=== PATIENT | male | born 1980 ===

== ENCOUNTER 2020-08-01 08:34 | Outpatient (CLI) | payer OTHER ==
[~2020-08-01 08:34] MED LIST: LUNESTA3 MG PO; PAXIL10 MG/5 ML PO
== END 2020-08-01 08:51 ==
LOC: SONOGRAMA 08:34 → RX STUDY 13:15
DX: Z00.00 Encounter for general adult medical examination without abnormal findings (principal)

== ENCOUNTER 2021-01-28 08:00 | Outpatient (CLI) | payer OTHER | END 2021-01-28 08:30 | disposition home or self-care (01) | LOC: PPH VACUNA 08:00 | DX: Z23 Encounter for immunization (principal) ==

== ENCOUNTER 2021-02-20 08:00 | Outpatient (CLI) | payer OTHER | END 2021-02-20 08:30 | disposition home or self-care (01) | LOC: PPH VACUNA 08:00 | DX: Z23 Encounter for immunization (principal) ==

== ENCOUNTER 2021-03-04 13:08 | Outpatient (CLI) | payer OTHER | END 2021-03-04 13:57 | disposition home or self-care (01) | LOC: NST 13:08 | PROVIDERS: ATTEND Obstetrics & Gynecology Maternal & Fetal Medicine | DX: Z34.83 Encounter for supervision of other normal pregnancy, third trimester (principal) ==

== ENCOUNTER 2021-03-13 08:48 | Outpatient (CLI) | payer OTHER | END 2021-03-13 09:41 | disposition home or self-care (01) | LOC: NST 08:48 | PROVIDERS: ATTEND Obstetrics & Gynecology | DX: Z34.82 Encounter for supervision of other normal pregnancy, second trimester (principal) ==

== ENCOUNTER 2021-04-16 09:31 | Outpatient (CLI) | payer OTHER | END 2021-04-16 10:37 | disposition home or self-care (01) | LOC: NST 09:31 | PROVIDERS: ATTEND Obstetrics & Gynecology Maternal & Fetal Medicine | DX: Z34.83 Encounter for supervision of other normal pregnancy, third trimester (principal) ==

== ENCOUNTER 2021-05-01 09:25 | Outpatient (CLI) | payer OTHER | END 2021-05-01 10:43 | disposition home or self-care (01) | LOC: NST 09:25 | PROVIDERS: ATTEND Obstetrics & Gynecology | DX: Z34.83 Encounter for supervision of other normal pregnancy, third trimester (principal) ==

== ENCOUNTER 2021-05-20 09:38 | Outpatient (CLI) | payer OTHER | END 2021-05-20 11:51 | disposition home or self-care (01) | LOC: NST 09:38 | PROVIDERS: ATTEND Obstetrics & Gynecology | DX: Z34.83 Encounter for supervision of other normal pregnancy, third trimester (principal) ==

== ENCOUNTER 2021-06-02 08:57 | Outpatient (CLI) | payer OTHER | END 2021-06-02 09:35 | disposition home or self-care (01) | LOC: NST 08:57 | PROVIDERS: ATTEND Obstetrics & Gynecology Maternal & Fetal Medicine | DX: Z34.83 Encounter for supervision of other normal pregnancy, third trimester (principal) ==

== ENCOUNTER 2021-06-15 08:45 | Inpatient (IN) | payer OTHER ==
[~2021-06-15] VITALS: Ht 167.6 cm; Wt 2.3 kg
[2021-06-15] MEDS ORDERED: SYNTHROID75 MCG PO (10:48)
[2021-06-17] MEDS ORDERED: PRENATAL CAPLE1 EAC1 PO (11:30)
[2021-06-17] MEDS ORDERED: ADULT LOW DOSE81 M1 PO (11:31)
== END 2021-06-21 18:04 | disposition home or self-care (01) | DRG 788 ==
LOC: OB/GYN 06-17 08:45 → O/R 06-17 09:30 → OB/GYN 06-17 19:47
PROVIDERS: ADMIT Obstetrics & Gynecology; ATTEND Obstetrics & Gynecology
PROC: 4A1HXCZ Monitoring of Products of Conception, Cardiac Rate, External Approach (ICD-10-PCS; 2021-06-17)
PROC: 10D00Z1 Extraction of Products of Conception, Low, Open Approach (ICD-10-PCS; principal; 2021-06-17 13:30)
DX: O60.14X2 Preterm labor third trimester with preterm delivery third trimester, fetus 2 (principal); O64.8XX2 Obstructed labor due to other malposition and malpresentation, fetus 2; O30.033 Twin pregnancy, monochorionic/diamniotic, third trimester; Z3A.36 36 weeks gestation of pregnancy; Z37.2 Twins, both liveborn; Z20.822 Contact with and (suspected) exposure to COVID-19

== ENCOUNTER 2021-07-23 09:00 | Outpatient (CLI) | payer OTHER ==
[~2021-07-23 09:00] MED LIST changes: +ADULT LOW DOSE81 M1 PO; +PRENATAL CAPLE1 EAC1 PO; +SYNTHROID75 MCG PO
== END 2021-07-23 09:15 | disposition home or self-care (01) ==
LOC: PPH VACUNA 09:00
PROVIDERS: ATTEND Emergency Medicine Pediatric Emergency Medicine
DX: Z23 Encounter for immunization (principal)